=== PATIENT | male | born 1980 | race African-American/Black ===

== ENCOUNTER 2017-05-05 18:13 | Emergency (ER) | payer MEDICAID, OTHER ==
--- NOTE | 2017-05-05 20:26 | ERNOTE ---
ENT HPI Presenting Symptoms: other Time Seen by Provider: 05/05/17 20:02 Source: patient Exam Limitations: no limitations - Immun/Allergies/Home Medications Immunizations: IMMUNIZATION HX Immunizations Up to Date Yes Allergies/Adverse Reactions: Allergies Allergy/AdvReac Type Severity Reaction Status Date / Time No Known Allergies Allergy Unverified 05/05/17 18:25 Home Medications: HOME MEDICATIONS Olopatadine HCl [Patanol] 1 - 2 drop EACHEYE BID #5 ml 05/05/17 [Last Taken Unknown] - History of Present Illness Narrative: Patient has had bilateral eye discomfort for two weeks. He works in a moving company, is not aware of any injuries, no foreign body feeling, no significant vision changes. He has some drainage from the eyes and they are crusted after sleeping. He has nasal congestion, possible history of allergies, no other symptoms Review of Systems - Review of Systems Constitutional: Absent: recent illness, fever EYE: Present: see HPI. Absent: double vision ENT: Present: nose congestion. Absent: nasal drainage Respiratory: Absent: shortness of breath Cardiology: Absent: chest pain, palpitations Gastrointestinal/Abdominal: Absent: abdominal pain Genitourinary: Present: no symptoms reported Musculoskeletal: Present: no symptoms reported Skin: Absent: rash Neurological: Absent: headache, weakness, numbness - Patient's Past Medical History Patient History - Medical: No pertinent hx Patient History - Cardiac/Respiratory: No pertinent hx Patient History - Cancer: No Hx of Cancer Patient History - Surgical Procedures: No surgical history - Social History Living Situations: home Psych History: No pertinent hx Smoking Status: Former smoker Alcohol Use: sober Drug Use: none - Immunizations Immunizations Up to Date: Yes Physical Exam - Physical Exam General Appearance: Present: wd/wn, alert, no apparent distress Eye Exam: PERRL: bilateral, EOMI: bilateral, Sclera injection: bilateral - very minimal, no drainage Ears, Nose, Throat: Present: normal except -, nasal congestion, normal pharynx Neck: Present: normal inspection, nontender Respiratory: Present: no respiratory distress, normal breath sounds, no accessory muscle use, chest nontender, lungs clear Cardiovascular/Chest: Present: regular rate, rhythm, no murmur Neurological Exam: Present: alert, oriented, normal mood/affect Skin Exam: Present: normal color, warm/dry ED Progress - Vital Signs Patient's Vital Signs:: I have reviewed the patient's vital signs. Vital Signs: Vital Signs 05/05/17 18:21 Temperature 36.8 C Pulse Rate 92 Respiratory 18 Rate Blood Pressure 146/87 O2 Sat by Pulse 98 Oximetry - Progress/Reassessment Chief Complaint: Eye Injury/Trauma Departure Clinical Impression: Allergic conjunctivitis and rhinitis Qualifiers: Laterality: bilateral Qualified Code(s): H10.13 - Acute atopic conjunctivitis, bilateral; J30.9 - Allergic rhinitis, unspecified - Departure Disposition: Home self-care Condition: Good Instructions: Allergic Conjunctivitis, [id number] Additional Instructions: try over the counter allergy medication like binu or generic as well as the eye drops, if your symptoms don't improve over the weekend follow up with an eye doctor for further testing Referrals: Robin Francois MD [Staff Physician] - Prescriptions: Olopatadine HCl [Patanol] 1 - 2 drop EACHEYE BID #5 ml
[2017-05-05 20:27] VITALS: BP 155/106
== END 2017-05-05 20:27 | disposition home or self-care (01) ==
LOC: ER 18:13
DX: H10.13 Acute atopic conjunctivitis, bilateral (principal); J30.9 Allergic rhinitis, unspecified; Z87.891 Personal history of nicotine dependence

== ENCOUNTER 2017-07-01 11:27 | Emergency (ER) | payer OTHER ==
[2017-07-01] MEDS ORDERED: KETOROLAC TROMETHAMINE 60 MG/2 ML VIAL IM ONE ×2 (12:18→12:47)
[2017-07-01] MEDS ORDERED: ORPHENADRINE CITRATE 30 MG/ML VIAL IM ONE (12:18)
--- NOTE | 2017-07-01 12:26 | ERNOTE ---
Back Pain ER HPI Date of Service: 07/01/17 Time Seen by Provider: 07/01/17 12:06 Source: patient Exam Limitations: no limitations Immunizations: IMMUNIZATION HX Immunizations Up to Date Yes History of Influenza Vaccine No Hx Pneumococcal Vaccination No Allergies/Adverse Reactions: Allergies No Known Allergies Allergy (Verified 07/01/17 11:38) Home Medications: HOME MEDICATIONS Cyclobenzaprine HCl [Flexeril] 10 mg PO TID PRN #30 tab 07/01/17 [Last Taken Unknown] Naproxen [Naprosyn] 500 mg PO BID PRN #60 tab 07/01/17 [Last Taken Unknown] Narrative: Pt. comes in with c/o low back pain for four days. Pt. denies any injury and states taht he has had this intermittently in the past from weight lifting. Pt. denies any numbness, tingling SOB, CP, incontinence of bowel or bladder. Pt. denies any decreased ROM and states that Ibuprofen and Tylenol alleviate some of the pain but pt. still has pain with movement and he has not taken any thing prior to arrival this morning. Review of Systems - Review of Systems Constitutional: Present: no symptoms reported. Absent: recent illness, fever, chills, weakness, fatigue, malaise EYE: Present: no symptoms reported ENT: Present: no symptoms reported Respiratory: Present: no symptoms reported. Absent: shortness of breath, cough , wheezing Cardiology: Present: no symptoms reported. Absent: chest pain, palpitations, edema Gastrointestinal/Abdominal: Present: no symptoms reported. Absent: nausea, vomiting, diarrhea Genitourinary: Present: no symptoms reported. Absent: frequency, decreased urinary output Musculoskeletal: Present: back pain. Absent: joint pain Skin: Present: no symptoms reported. Absent: rash, change in color Neurological: Present: no symptoms reported. Absent: headache, dizziness/light- headedness, numbness, tingling All Other Systems: All systems neg except as marked - Patient's Past Medical History Patient History - Medical: No pertinent hx Patient History - Cardiac/Respiratory: No pertinent hx Patient History - Cancer: No Hx of Cancer Patient History - Surgical Procedures: No surgical history - Social History Living Situations: home Psych History: No pertinent hx Smoking Status: Never smoker Alcohol Use: rarely Drug Use: none - Immunizations Immunizations Up to Date: Yes Hx Pneumococcal Vaccination: No History of Influenza Vaccine: No Physical Exam - Physical Exam General Appearance: Present: wd/wn, alert, no apparent distress Head Exam: Present: normal inspection, no evidence of injury Eye Exam: Normal inspection: bilateral, PERRL: bilateral, EOMI: bilateral Neck: Present: normal inspection, nontender. Absent: lymphadenopathy (R), lymphadenopathy (L) Respiratory: Present: no respiratory distress, normal breath sounds, no accessory muscle use, chest nontender, lungs clear Cardiovascular/Chest: Present: regular rate, rhythm, no murmur, normal peripheral pulses Back Exam: Present: normal range of motion, no CVA tenderness, no vertebral tenderness, muscle spasm - BLQ. Absent: decreased range of motion Extremity Exam: Present: normal inspection, non-tender, normal range of motion, no edema Neurological Exam: Present: alert, oriented, normal mood/affect, no motor/ sensory deficits Skin Exam: Present: normal color, warm/dry. Absent: pallor, skin rash ED Progress - Date and Time Seen: Date and Time: 07/01/17 12:14 As pt. does not have any acute injury, numbness tingling, or incontinence and this has not worsened over the past four days feel that this is likely chronic and does not require imaging at this time. - Vital Signs Patient's Vital Signs:: I have reviewed the patient's vital signs. Vital Signs: Vital Signs 07/01/17 11:35 Temperature 36.8 C Pulse Rate 78 Respiratory 19 Rate Blood Pressure 154/91 O2 Sat by Pulse 99 Oximetry - Progress/Reassessment Chief Complaint: Back Pain Departure Clinical Impression: Low back strain Qualifiers: Encounter type: initial encounter Qualified Code(s): S39.012A - Strain of muscle, fascia and tendon of lower back, initial encounter - Departure Disposition: Home self-care Condition: Good Instructions: Low Back Strain With Rehab[facility] Additional Instructions: Please follow up with primary provider if not improving in 2-3 days. Prescriptions: Cyclobenzaprine HCl [Flexeril] 10 mg PO TID PRN #30 tab PRN Reason: MUSCLE SPASMS Naproxen [Naprosyn] 500 mg PO BID PRN #60 tab PRN Reason: Pain
[2017-07-01] MEDS ORDERED: ORPHENADRINE CITRATE 30 MG/ML VIAL ONE (12:47)
[2017-07-01 12:55] VITALS: BP 150/101
== END 2017-07-01 12:59 | disposition home or self-care (01) ==
LOC: ER 11:27
DX: S39.012A Strain of muscle, fascia and tendon of lower back, initial encounter (principal); Y93.B9 Activity, other involving muscle strengthening exercises